=== PATIENT | male | born 1985 | race African-American/Black ===

== ENCOUNTER 2021-01-08 16:45 | Emergency (ER) | payer MEDICAID, SELFPAY ==
--- NOTE | ~2021-01-08 | XR_ITS ---
EXAMINATION: XR CHEST CLINICAL INFORMATION: Chest pain. COMPARISON: None TECHNIQUE: Frontal view of the chest was obtained. FINDINGS: No significant abnormality is noted involving the heart, lungs, mediastinum, bony thorax or soft tissues. XR/XR chest 1V IMPRESSION: Unremarkable chest examination.
[2021-01-08 16:59] VITALS: BP 109/59; PULSE 70; RESP 16; TEMP 36.6; O2SAT 96; BMI 27.3
--- NOTE | 2021-01-08 17:03 | ECG_ITS ---
Test Reason : CHEST PAIN Blood Pressure : / mmHG Vent. Rate : 062 BPM Atrial Rate : 062 BPM P-R Int : 180 ms QRS Dur : 096 ms QT Int : 384 ms P-R-T Axes : 070 073 038 degrees QTc Int : 389 ms Normal sinus rhythm ST elevation, consider early repolarization Borderline ECG No previous ECGs available Referred By: Generic ED Physician Electronically Signed By:RODRIGUEZ MIRANDA
--- NOTE | 2021-01-08 19:45 | PC.NURSE ---
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
[2021-01-08 20:01] VITALS: BP 113/59; PULSE 46; RESP 16; TEMP 37.1; O2SAT 97
[2021-01-08 20:02] LABS: MANUAL DIFF FLAG NO
[2021-01-08 20:03] LABS: Basophils Absolute Auto 0.1 X10*3/uL (0.0-0.2); Basophils Percent Auto 1.2 % (0-2); Eosinophils Absolute Auto 0.1 X10*3/uL (0.0-0.4); Eosinophils Percent Auto 2.4 % (0-4); Hematocrit 42.4 % (42-52); Hemoglobin 14.1 g/dl (14.0-18.0); Imm Gran Abs Auto 0.01 X10*3/uL (0.00-0.03); Imm Gran Pct Auto 0.2 % (0.0-0.4); Lymphocytes Absolute Auto 2.2 X10*3/uL (1.2-4.9); Lymphocytes Percent Auto 52.7 % (20-40); Mean Corpuscular HGB Conc 33.3 g/dl (31.0-36.0); Mean Corpuscular Hemoglobin 29.8 pg (27.0-33.0); Mean Corpuscular Volume 89.6 fL (80-98); Mean Platelet Volume 9.3 fL (9.4-12.4); Monocytes Absolute Auto 0.4 X10*3/uL (0.1-1.2); Monocytes Percent Auto 8.8 % (2-11); Neutrophils Absolute Auto 1.5 X10*3/uL (2.0-8.3); Neutrophils Percent Auto 34.7 % (45-73); Platelet Count 197 X10*3/uL (160-400); Red Blood Count 4.73 X10*6/uL (4.60-5.80); Red Cell Distribution Width 12.4 % (11.0-16.0); White Blood Count 4.2 X10*3/uL (4.8-10.8)
--- NOTE | 2021-01-08 20:16 | ED_ITS ---
HPI - Chest Pain General Chief Complaint: Chest Pain Stated Complaint: body pain Time Seen by Provider: 01/08/21 20:02 Source: patient Mode of arrival: ambulatory Limitations: no limitations History of Present Illness HPI narrative: Patient with no known cardiac history strong family history of sudden cardiac arrest in his brother at age of 28 comes in for chest pain started since 10:00 o'clock tomorrow which increased with deep breath and movement of the arm localized in midsternal area is sharp in character , no diaphoresis no nausea or vomiting no dizziness no palpitation patient has similar chest pain few years ago and patient was told that has a big heart no history of cocaine use Related Data Previous Rx's Medication Instructions Recorded ibuprofen 600 mg tablet 600 mg PO Q6H PRN #20 tab 01/08/21 Allergies Allergy/AdvReac Type Severity Reaction Status Date / Time No Known Allergies Allergy Verified 01/08/21 17:01 Review of Systems Review of Systems: Yes all other systems are reviewed and are negative [facility] Past Medical History Medical History Heart enlargement Social History Social History Advance Directives: No Physical Exam Vital Signs: Vital Signs: Last Vital Signs Temp 98.7 F 01/08/21 20:01 Pulse 46 L 01/08/21 20:01 Resp 16 01/08/21 20:01 BP 113/59 L 01/08/21 20:01 Pulse Ox 97 01/08/21 20:01 Body Mass Index 27.3 Appearance: Alert. Oriented X3. No acute distress. Eyes: PERRLA, No Nystagmus ENT: Pharynx normal. Oral Mucosa moist Neck: Normal inspection. Neck supple. CVS: Normal heart rate and rhythm. Pulses normal. Local tenderness bilateral 2nd intercostal space Respiratory: No respiratory distress. Equal air entry bilateral, no wheezing/rales/rhonchi Abdomen: Soft and nontender. Skin: Skin warm and dry. Normal skin color. Normal skin turgor. Extremities: No lower extremity edema. No calf tenderness Neuro: Oriented X 3 MDM - Chest Pain Lab Data Attestation: I reviewed the patient's lab results. Result diagrams: 01/08/21 19:56 01/08/21 19:56 Labs: Lab Results 01/08/21 01/08/21 01/08/21 Range/Units 19:56 19:56 19:56 WBC 4.2 L (4.8-10.8) X10*3/uL RBC 4.73 (4.60-5.80) X10*6/uL Hgb 14.1 (14.0-18.0) g/dl Hct 42.4 (42-52) % MCV 89.6 (80-98) fL MCH 29.8 (27.0-33.0) pg MCHC 33.3 (31.0-36.0) g/dl RDW 12.4 (11.0-16.0) % Plt Count 197 (160-400) X10*3/uL MPV 9.3 L (9.4-12.4) fL Immature Gran % (Auto) 0.2 (0.0-0.4) % Neut % (Auto) 34.7 L (45-73) % Lymph % (Auto) 52.7 H (20-40) % [place] % (Auto) 8.8 (2-11) % Eos % (Auto) 2.4 (0-4) % Baso % (Auto) 1.2 (0-2) % Lymph # (Auto) 2.2 (1.2-4.9) X10*3/uL [place] # (Auto) 0.4 (0.1-1.2) X10*3/uL Eos # (Auto) 0.1 (0.0-0.4) X10*3/uL Baso # (Auto) 0.1 (0.0-0.2) X10*3/uL Abs Immat Gran (auto) 0.01 (0.00-0.03) X10*3/uL Absolute Neuts (auto) 1.5 L (2.0-8.3) X10*3/uL Absolute Nucleated RBC 0.000 (0.0-0.012) X10*3/uL Nucleated RBC % (auto) 0.0 (0.0-0.2) /100WBC Sodium 141 (135-145) mmol/L Potassium 4.1 (3.3-5.1) mmol/L Chloride 107 (96-108) mmol/L Carbon Dioxide 28 (22-29) mmol/L Anion Gap 10 L (12-20) BUN 11 (9-16) mg/dL Creatinine 0.95 (0.5-1.4) mg/dL Estim Creat Clear Calc 117.7 Estimated GFR > 60 Random Glucose 80 (60-115) mg/dL Calcium 9.0 (8.4-10.2) mg/dL Troponin I High Sens < 3.5 (<3.5-35.0) ng/L COVID-19 (BRENDA) (Negative) COVID-19 Clin Com 01/08/21 Range/Units 19:56 WBC (4.8-10.8) X10*3/uL RBC (4.60-5.80) X10*6/uL Hgb (14.0-18.0) g/dl Hct (42-52) % MCV (80-98) fL MCH (27.0-33.0) pg MCHC (31.0-36.0) g/dl RDW (11.0-16.0) % Plt Count (160-400) X10*3/uL MPV (9.4-12.4) fL Immature Gran % (Auto) (0.0-0.4) % Neut % (Auto) (45-73) % Lymph % (Auto) (20-40) % [place] % (Auto) (2-11) % Eos % (Auto) (0-4) % Baso % (Auto) (0-2) % Lymph # (Auto) (1.2-4.9) X10*3/uL [place] # (Auto) (0.1-1.2) X10*3/uL Eos # (Auto) (0.0-0.4) X10*3/uL Baso # (Auto) (0.0-0.2) X10*3/uL Abs Immat Gran (auto) (0.00-0.03) X10*3/uL Absolute Neuts (auto) (2.0-8.3) X10*3/uL Absolute Nucleated RBC (0.0-0.012) X10*3/uL Nucleated RBC % (auto) (0.0-0.2) /100WBC Sodium (135-145) mmol/L Potassium (3.3-5.1) mmol/L Chloride (96-108) mmol/L Carbon Dioxide (22-29) mmol/L Anion Gap (12-20) BUN (9-16) mg/dL Creatinine (0.5-1.4) mg/dL Estim Creat Clear Calc Estimated GFR Random Glucose (60-115) mg/dL Calcium (8.4-10.2) mg/dL Troponin I High Sens (<3.5-35.0) ng/L COVID-19 (BRENDA) Negative (Negative) COVID-19 Clin Com See Note ECG Data ECG #1: Attestation: I personally reviewed and interpreted this ECG as follows: Interpretation: Normal sinus rhythm heart rate 62 beats per minute , normal axis normal intervals early repolarization changes no acute ST T wave changes no acute ischemia Discharge Plan Discharge Clinical Impression: Costalchondritis Patient Disposition: Home, Self-Care Instructions: Costochondritis (ED) Additional Instructions: Take ibuprofen every 6 hours as needed for pain. your chest pain is not from the heart. Follow-up with your primary care doctor if chest pain continues [facility] ibuprofeno cada 6 horas seg?n sea necesario para el dolor. trevino dolor de pecho no es del coraz?n. James un seguimiento con trevino m?dico de atenci?n primaria si el dolor en el pecho contin?a Prescriptions: New ibuprofen 600 mg tablet 600 mg PO Q6H PRN (Reason: pain) Qty: 20 RF: 0 Referrals: Liz Owen MD [Physician] - 1 week Print Language: Macedonian
[2021-01-08 20:17] LABS: Anion Gap 10 (12-20); Blood Urea Nitrogen 11 mg/dL (9-16); Carbon Dioxide 28 mmol/L (22-29); Chloride 107 mmol/L (96-108); Creatinine Clr Calc Pharmacy 117.7; Estimated Glomerular Filt Rate > 60; Glucose Random 80 mg/dL (60-115); Potassium 4.1 mmol/L (3.3-5.1); Sodium 141 mmol/L (135-145)
[2021-01-08 20:21] LABS: COVID-19 Test Negative (Negative)
[2021-01-08 20:23] LABS: Troponin-I High Sensitivity < 3.5 ng/L (<3.5-35.0)
[2021-01-08] MEDS: Ibuprofen 600 MG TABLET PO (20:35)
--- NOTE | 2021-01-08 20:35 | PC.NURSE ---
Pt medicated per JUN. Awaiting DC paperwork.
== END 2021-01-08 20:39 | disposition home or self-care (01) ==
PROVIDERS: Emergency Provider Internal Medicine
DX: M94.0 Chondrocostal junction syndrome [Tietze] (principal); R07.9 Chest pain, unspecified; Z20.822 Contact with and (suspected) exposure to COVID-19; Z79.899 Other long term (current) drug therapy
CPT/HCPCS: 36415; 71045; 80048; 84484; 85025; 87635; 93005; 99284

== ENCOUNTER 2021-03-01 17:03 | Emergency (ER) | payer OTHER, SELFPAY ==
--- NOTE | ~2021-03-01 | XR_ITS ---
EXAMINATION: XR ANKLE, LEFT CLINICAL INFORMATION: Fall. Pain in the calcaneus COMPARISON: None TECHNIQUE: AP, lateral, and mortise views of the left ankle. FINDINGS: Small corticated fragment inferior to lateral malleolus is chronic. No acute fracture. No dislocation. No joint effusion or soft tissue swelling around the ankle. The calcaneus is intact. Subtalar joint is normal. XR/XR ankle LT 2V IMPRESSION: Normal left ankle.
[2021-03-01 17:48] VITALS: BP 109/66; PULSE 54; RESP 20; TEMP 37.1; O2SAT 97
[2021-03-01 18:10] LABS: COVID-19 Test Negative (Negative)
[2021-03-01 18:35] VITALS: BP 109/66; PULSE 54; RESP 18; TEMP 37.1; O2SAT 97; BMI 27.1
--- NOTE | 2021-03-01 18:52 | ED_ITS ---
HPI - Extremity Injury (Lower) General Chief Complaint: Extremity Injury, Lower Stated Complaint: covid exposure + work inj Time Seen by Provider: 03/01/21 18:28 Source: patient Mode of arrival: ambulatory History of Present Illness HPI Narrative: 35-year-old male presenting to the ED complaining of left ankle and elbow pain s/p mechanical slip and fall in freezer at work yesterday. Reports pain with ambulation/left foot movement. Denies head trauma or LOC. denies symptoms prior to fall. Also requesting COVID-19 testing, denies any your eye symptoms including fever, chills, cough, SOB/CP, numbness/tingling complaint: ankle injury and foot injury Related Data Previous Rx's Medication Instructions Recorded ibuprofen 600 mg tablet 600 mg PO Q6H PRN #20 tab 01/08/21 Allergies Allergy/AdvReac Type Severity Reaction Status Date / Time No Known Allergies Allergy Verified 01/08/21 17:01 Review of Systems Review of Systems: Constitutional: No Fever, No Chills ENT/Mouth: No Ear Pain, No Nasal Congestion, No sore throat, No Rhinorrhea, No Swallowing Difficulty Cardiovascular: No Chest Pain, No SOB Respiratory: No Cough, No Sputum, No Wheezing Gastrointestinal: No Nausea, No Vomiting, No Diarrhea, No Constipation, No Abdominal pain Genitourinary: No Dysuria, No Urinary Frequency, No Urgency, No Flank Pain Musculoskeletal: + joint pain, No Myalgias, No Joint Swelling Skin: No Skin Lesions, No rash Neuro: No Weakness, No Numbness, No Paresthesias, no headache, no LOC Yes all other systems are reviewed and are negative [facility] Past Medical History Attestation statement: The following information was validated with the patient. Medical History Heart enlargement Physical Exam Vital Signs: Vital Signs: Last Vital Signs Temp 98.8 F 03/01/21 18:35 Pulse 54 03/01/21 18:35 Resp 18 03/01/21 18:35 BP 109/66 03/01/21 18:35 Pulse Ox 97 03/01/21 18:35 Body Mass Index 27.1 Const: General: cooperative, healthy appearing and no acute distress Orientation/consciousness: patient oriented x3 Limitations: no limitations HENMT: Head: Yes normal to inspection and Yes atraumatic Ears: hearing grossly normal bilaterally General nose exam: Normal external nose present Face and sinus: Yes normal facial exam Eyes: General: appearance normal, both eyes and all related structures EOM: EOMs intact bilaterally Neck: Neck: Yes normal visual inspection Resp: Effort & Inspection: normal respiratory effort, no respiratory distress and no stridor Auscultation: clear to auscultation bilaterally Cardio: Rate: regular rate Heart sounds: S1 normal heart sound present and S2 normal heart sound present GI: Inspection: Yes normal to inspection Skin: Rashes: no rashes Wounds: no wounds Neuro: General: patient oriented x3 Gait exam (Neuro): Normal gait present Extrem: Other: Left elbow with mild tenderness to palpation. No deformity/cellulitis. Full range of motion intact. Neurovascular intact distally Left calcaneus/posterior ankle/Achilles with tenderness. Limited ROM ankle secondary to pain. No deformity. Neurovascularly intact, sensation intact to light touch. Foot/knee nontender Negative Yoo test General: Yes normal to inspection Course Course Course Narrative: XR ankle LT 2V IMPRESSION: Normal left ankle. -COVID-19 negative MDM - Extremity Injury (Lower) MDM Narrative Medical decision making narrative: 35-year-old male presenting to the ED complaining of left ankle and elbow pain s/p mechanical slip and fall in freezer at work yesterday. On exam vital signs stable, NAD/nontoxic, physical exam as above. Concern for sprained ankle vs sprain/strained Achilles. Unlikely fracture. Low concern for Achilles tendon rupture with negative Yoo test a patient has been ambulatory Plan: X-rays, COVID-19 testing for request Medical Records Attestation: I reviewed the patient's medical records. Lab Data Attestation: I reviewed the patient's lab results. Labs: Lab Results 03/01/21 Range/Units 17:28 COVID-19 (BRENDA) Negative (Negative) COVID-19 Clin Com See Note Discharge Plan Discharge Clinical Impression: Ankle sprain and strain Patient Disposition: Home, Self-Care Instructions: Ankle Sprain (ED) Additional Instructions: Your x-ray was unremarkable, you likely sprained your ankle, where a strep at home as needed for comfort/stability Ice and elevate, take Tylenol Motrin You tested negative for COVID-19 Please follow-up with your doctor Follow-up with orthopedics as needed If your symptoms persist or worsen, your unable to walk, develops weakness, numbness please return to the ED Prescriptions: No Action ibuprofen 600 mg tablet 600 mg PO Q6H PRN (Reason: pain) Qty: 20 RF: 0 Referrals: Physician,None [Primary Care Provider] - 2 days
== END 2021-03-01 19:52 | disposition home or self-care (01) ==
PROVIDERS: Emergency Provider Internal Medicine; PCP Internal Medicine
DX: S93.402A Sprain of unspecified ligament of left ankle, initial encounter (principal); S96.912A Strain of unspecified muscle and tendon at ankle and foot level, left foot, initial encounter; W01.0XXA Fall on same level from slipping, tripping and stumbling without subsequent striking against object, initial encounter; Y93.9 Activity, unspecified; Y92.89 Other specified places as the place of occurrence of the external cause; Y99.0 Civilian activity done for income or pay; Z20.822 Contact with and (suspected) exposure to COVID-19
CPT/HCPCS: 36415; 73600; 87635; 99283

== ENCOUNTER 2021-05-08 10:56 | Outpatient (REF) | payer OTHER, SELFPAY ==
[2021-05-08 12:25] LABS: COVID-19 Test Positive (Negative)
== END 2021-05-08 10:57 | disposition home or self-care (01) ==
LOC: HO.LAB 10:56
PROVIDERS: Visit Provider Internal Medicine
DX: Z20.822 Contact with and (suspected) exposure to COVID-19 (principal)
CPT/HCPCS: 87635; C9803

== ENCOUNTER 2021-08-10 21:14 | Emergency (ER) | payer OTHER, SELFPAY ==
--- NOTE | ~2021-08-10 | XR_ITS ---
Indication: Trauma EXAMINATION: Right ankle, right tib-fib, right knee. 4 views of the right knee do not demonstrate acute fracture or dislocation. 2 views of the right tib-fib do not demonstrate evidence for fracture. Single image of the ankle is submitted. Mortise view. No fracture is seen. XR/XR tibia fibula RT 2V IMPRESSION: Multiple studies. No acute finding. Limited imaging of the right ankle single detailed view submitted
--- NOTE | ~2021-08-10 | CT_ITS ---
EXAMINATION: CT KNEE WITHOUT CONTRAST, RIGHT CLINICAL INFORMATION: Rule out fracture COMPARISON: 08/10/2021 TECHNIQUE: Multidetector volumetric imaging of the right knee performed without IV contrast. Coronal and sagittal reformatted images are obtained and reviewed. This CT examination was performed using dose optimization techniques as appropriate, variously including the following: *Automated exposure control *Adjustment of mA and/or kV according to patient size (this includes techniques or standardized protocols for targeted exams where dose is matched to indication/reason for exam; i.e. extremities or head) *Use of iterative reconstruction technique DLP: 241 mGy-cm FINDINGS: No fracture or subluxation. Compartmental joint spaces maintained. Small joint effusion. The soft tissues. Small enthesophyte of the superior patella. CT/CT knee RT wo con IMPRESSION: Small joint effusion. No fracture or malalignment.
--- NOTE | ~2021-08-10 | XR_ITS ---
Indication: Trauma EXAMINATION: Right ankle, right tib-fib, right knee. 4 views of the right knee do not demonstrate acute fracture or dislocation. 2 views of the right tib-fib do not demonstrate evidence for fracture. Single image of the ankle is submitted. Mortise view. No fracture is seen. XR/XR ankle RT 2V IMPRESSION: Multiple studies. No acute finding. Limited imaging of the right ankle single detailed view submitted
--- NOTE | ~2021-08-10 | XR_ITS ---
Indication: Trauma EXAMINATION: Right ankle, right tib-fib, right knee. 4 views of the right knee do not demonstrate acute fracture or dislocation. 2 views of the right tib-fib do not demonstrate evidence for fracture. Single image of the ankle is submitted. Mortise view. No fracture is seen. XR/XR knee RT 3V IMPRESSION: Multiple studies. No acute finding. Limited imaging of the right ankle single detailed view submitted
[2021-08-10 21:31] VITALS: BP 118/72; BP 120/70; PULSE 110; PULSE 86; RESP 18; TEMP 36.5; O2SAT 96; O2SAT 99; BMI 26.4
--- NOTE | 2021-08-10 22:23 | ED_ITS ---
HPI - Extremity Injury (Lower) General Chief Complaint: Extremity Injury, Lower Stated Complaint: RIGHT LEG AND KNEE PAIN Time Seen by Provider: 08/10/21 22:16 Source: patient Mode of arrival: wheelchair Limitations: no limitations History of Present Illness HPI Narrative: Patient comes to the emergency room complaining right leg pain. Prior to arrival, patient was at work. Patient states that he was standing behind a pressurized [employer]. 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 Patient got hit on the lateral side of the right leg. Patient complaining knee pain radiating towards the ankle. Patient has not taken any medication for pain. Patient did not sustain any other injuries at work. Patient states that he is unable to bear weight due to the pain in the right knee. Related Data Previous Rx's Medication Instructions Recorded ibuprofen 600 mg tablet 600 mg PO Q6H PRN #20 tab 01/08/21 ibuprofen 600 mg tablet 600 mg PO Q6H PRN #20 tab 08/11/21 Allergies Allergy/AdvReac Type Severity Reaction Status Date / Time No Known Allergies Allergy Verified 01/08/21 17:01 Review of Systems Review of Systems: Constitutional : No Weight loss, No Fever, No Chills, No Night Sweats, No Fatigue, No Malaise ENT/Mouth : No Hearing loss, No Ear Pain, No Nasal Congestion, No Sinus Pain, No Hoarseness, No sore throat, No Rhinorrhea, No Swallowing Difficulty Eyes: No Eye Pain, No Swelling, No Redness, No Foreign Body, No Discharge, No Vision Changes Cardiovascular : No Chest Pain, No SOB, No Dyspnea on Exertion, No Orthopnea, No Edema, No Palpitations Respiratory : No Cough, No Sputum, No Wheezing, No Smoke Exposure, No Dyspnea Gastrointestinal : No Nausea, No Vomiting, No Diarrhea, No Constipation, No abdominal Pain, No Hematochezia, No Melena Genitourinary : no irregular bleeding, No Dysuria, No Urinary Frequency, No Hematuria, No Urinary Incontinence, No Urgency, No Flank Pain, No Urinary Flow Changes, No Hesitancy Musculoskeletal : Complaining of right-sided knee pain radiating towards the right ankle, unable to bear weight, No Myalgias, No Joint Swelling Skin : No Skin Lesions, No rash Neuro : No Weakness, No Numbness, No Paresthesias, No Loss of Consciousness, No Dizziness, No Headache Psych : No Anxiety/Panic, No Depression, No SI/HI/AH/VH, No Social Issues, Heme/Lymph: No Bruising, No Bleeding,No Lymphadenopathy Endocrine : No Polyuria, No Polydipsia, No Temperature Intolerance [facility] Past Medical History Medical History Heart enlargement Social History Social History Advance Directives: No Physical Exam Vital Signs: Vital Signs: Last Vital Signs Temp 97.7 F 08/10/21 21:31 Pulse 86 08/10/21 21:31 Resp 18 08/10/21 21:31 BP 120/70 08/10/21 21:31 Pulse Ox 96 08/10/21 21:31 BMI result Body Mass Index 26.4 Const: Other: Appearance: Alert. Oriented X3. No acute distress. Eyes: Pupils equal, round and reactive to light. ENT: Pharynx normal. Neck: Normal inspection. Neck supple. No lymph nodes noted. No crepitus CVS: Normal heart rate and rhythm. Pulses normal. Normal S1 and S2 Respiratory: No respiratory distress. Breath sounds normal. No Wheezing. No rales Abdomen: Soft and nontender. No rigidity. No distention. Skin: Skin warm and dry. Normal skin color. Normal skin turgor. Extremities: No lower extremity edema. Right knee does not seem swollen, no obvious abrasions or deformities. Pain to palpation and applying pressure to the patella. Patient unable to flex or extend the knee due to pain. No pain at the ankle, no pain to palpation to the right thigh. Neuro: Oriented X 3. No motor deficit. No sensory deficit. Moving all extremities. No slurred speech. CN 2 through 12 grossly intact Psych: calm, cooperative, normal affect Course Course Course Narrative: Patient was given 1 dose of ibuprofen, imaging pending. X-ray was negative, patient unable to bear weigh. CT scan does not show any fracture, only a small joint effusion. MDM - Extremity Injury (Lower) Imaging Data CT scan of the knee: Radiologist's impression: INDINGS: No fracture or subluxation. Compartmental joint spaces maintained. Small joint effusion. The soft tissues. Small enthesophyte of the superior patella.? CT/CT knee RT wo con IMPRESSION: Small joint effusion. No fracture or malalignment.? ? Discharge Plan Discharge Clinical Impression: Contusion of knee, right Patient Disposition: Home, Self-Care Instructions: Knee Pain (ED) Additional Instructions: Please follow-up with work connection tomorrow. Please follow-up with your primary care physician tomorrow. If you have any worsening or new symptoms, please return to the emergency room or call 911 Prescriptions: New ibuprofen 600 mg tablet 600 mg PO Q6H PRN (Reason: fever or pain) Qty: 20 0RF No Action ibuprofen 600 mg tablet 600 mg PO Q6H PRN (Reason: pain) Qty: 20 0RF Stand Alone Forms: Work/School Release
[2021-08-10] MEDS: Ibuprofen 600 MG TABLET PO (22:34)
[2021-08-11 00:16] VITALS: BP 127/89; PULSE 74; RESP 16; TEMP 36.9; O2SAT 97
== END 2021-08-11 00:47 | disposition home or self-care (01) ==
PROVIDERS: Emergency Provider Emergency Medicine
DX: S80.01XA Contusion of right knee, initial encounter (principal); Y29.XXXA Contact with blunt object, undetermined intent, initial encounter; Y93.9 Activity, unspecified; Y92.9 Unspecified place or not applicable; Y99.9 Unspecified external cause status
CPT/HCPCS: 73562; 73590; 73600; 73700; 99284

== ENCOUNTER 2022-09-11 08:09 | Emergency (ER) | payer OTHER, SELFPAY ==
--- NOTE | ~2022-09-11 | CT_ITS ---
EXAMINATION: CT SOFT TISSUE NECK WITH CONTRAST CLINICAL INFORMATION: Further evaluation of lymphadenopathy. Pain. COMPARISON: Non-contrast enhanced facial bone CT from earlier the same day. TECHNIQUE: Following the intravenous administration of 60 mL of Omnipaque 350 intravenous contrast, helical imaging was performed in the axial plane with generation of coronal and sagittal reformatted images. This CT examination was performed using dose optimization techniques as appropriate, variously including the following: *Automated exposure control *Adjustment of mA and/or kV according to patient size (this includes techniques or standardized protocols for targeted exams where dose is matched to indication/reason for exam; i.e. extremities or head) *Use of iterative reconstruction technique DLP: 596 mGy-cm FINDINGS: There is abnormal low-attenuation soft tissue seen in the left pharyngeal mucosal space and floor of the mouth suggestive of a large left peritonsillar abscess. This tracks along the left parapharyngeal space inferiorly to the level of the piriform sinuses. There is effacement of the left piriform sinus and medial displacement of the aryepiglottic fold.. There is abnormal more superficial fluid seen in the left neck adjacent to the left carotid artery, submandibular gland and sternocleidomastoid muscle. There is periapical lucency adjacent to the most posterior molar in the left inferior alveolar ridge. There is destruction of the medial mandible. There is adjacent low-attenuation soft tissue or fluid seen in the floor of the mouth. Etiology of abscess is likely from dental infection. Abscess abuts the left side of the epiglottis. The epiglottis does not appear thickened. The larynx is normal. There is low-attenuation seen adjacent to the medial temporal horn of the right lateral ventricle, question representing a choroid fissure cyst measuring 1 cm axial image 16 series 2. Visualized intracranial structures are otherwise normal. The orbits are normal. Visualized paranasal sinuses, mastoid air cells and middle ears are clear. There is diffuse shotty cervical lymphadenopathy, likely reactive. There is fluid seen surrounding the left submandibular gland. The salivary glands are otherwise normal. The thyroid gland is normal. Vascular structures are normal. The visualized superior mediastinum is normal. The visualized lung apices are clear. The cervical spine is normal-appearing. CT/CT soft tissue neck w IV con IMPRESSION: Large left peritonsillar abscess involving the floor of the left side of the mouth extending inferiorly into the neck along the parapharyngeal space to the level of the left piriformis sinus. This probably arises from dental infection of the most posterior left inferior molar where there is destruction of the adjacent medial surface of the mandible and adjacent low-attenuation fluid collection/abscess in the floor of the mouth. Diffuse cervical lymphadenopathy, likely reactive. Findings were communicated to Dr. Lutz on 09/11/2022 at 12:55 PM.
--- NOTE | ~2022-09-11 | CT_ITS ---
EXAMINATION: CT FACIAL BONES WITHOUT CONTRAST CLINICAL INFORMATION: Pain. Trauma. COMPARISON: None available. TECHNIQUE: Axial images through the facial bones without contrast. Sagittal and coronal reconstructions on the technologist workstation were performed. This CT examination was performed using dose optimization techniques as appropriate, variously including the following: *Automated exposure control *Adjustment of mA and/or kV according to patient size (this includes techniques or standardized protocols for targeted exams where dose is matched to indication/reason for exam; i.e. extremities or head) *Use of iterative reconstruction technique DLP: 342 mGy-cm FINDINGS: No facial bone fracture is seen. Visualized intracranial structures are normal. The orbits are normal. The paranasal sinuses, mastoid air cells and middle ears are clear. The temporomandibular joints are normal. There is poor dentition. There are multiple periapical lucencies adjacent to the left most posterior molar and dental hardware. Large periapical lucency adjacent to the left most posterior inferior molar. There is breakthrough of the inner cortex of the left side of the mandible and adjacent prominent soft tissue. Possible dental abscess with extension into the oropharynx and supraglottic neck should be considered. Neoplastic process cannot be excluded. Clinical correlation recommended. If there is question of abscess, repeat exam with IV contrast should be considered. There is diffuse disc cervical lymphadenopathy. There is prominent soft tissue seen in the oropharynx, left side greater than right. There is asymmetric increased soft tissue seen in the left supraglottic region with effacement of the left piriformis sinus. Mass versus infection should be considered. Visualized salivary glands are normal. Visualized cervical is normal. CT/CT facial bones wo IV con IMPRESSION: No facial bone fracture. Prominent soft tissue in the oropharynx, left greater than right and inferior extension to the supraglottic region with effacement of the left piriformis sinus. Diffuse cervical lymphadenopathy. There is poor dentition with periapical lucency adjacent to the left most posterior inferior molar. There is breakthrough of the inner cortex of the mandible. Possible dental abscess with extension into the oropharynx and supraglottic neck should be considered. Neoplastic process cannot be excluded. Clinical correlation recommended. If there is question of abscess, repeat exam with IV contrast should be considered.
[2022-09-11 08:11] VITALS: BP 117/63; PULSE 78; RESP 16; TEMP 36.9; O2SAT 97; BMI 24.4
--- NOTE | 2022-09-11 08:22 | ED.HEATRA ---
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 Patient states that 2 days ago, he caught an elbow to his left jaw and has been having pain with trouble eating. Patient denies any loss of consciousness, dizziness, lightheadedness, abdominal pain, nausea, vomiting, fever, chills, blurry vision, double vision, loss of vision, chest pain, difficulty breathing, shortness of breath, back pain, night sweats, pain with urination, increased urinary frequency, increased urinary urgency, blood in his urine or stool, syncope or a near syncopal episode, bowel incontinence, bladder incontinence, bowel retention, bladder retention, or any other complaints at this time. Onset (ago): day(s) (2) Place: outdoors Loss of Consciousness: no Location of injury: mandible Severity: mild Severity scale (1-10): 3 Quality: dull and aching Radiation: none Associated symptoms: denies other symptoms Related Data Previous Rx's Medication Instructions Recorded ibuprofen 600 mg tablet 600 mg PO Q6H PRN pain #20 tabs 01/08/21 ibuprofen 600 mg tablet 600 mg PO Q6H PRN fever or pain 08/11/21 #20 tabs Allergies Allergy/AdvReac Type Severity Reaction Status Date / Time No Known Allergies Allergy Verified 01/08/21 17:01 Review of Systems Constitutional: Constitutional: Reports no additional constitutional complaints, Denies chills, Denies fever(s) and Denies night sweats Eyes: Eyes: Reports no additional eye complaints, Denies blurry vision, Denies change in vision, Denies diplopia, Denies eye discharge, Denies loss of vision and Denies eye pain ENT: Denies dizziness Comments: left sided jaw pain Cardiovascular: Cardiovascular: Reports no additional cardiovascular complaints, Denies chest pain, Denies lightheadedness, Denies Loss of Consciousness and Denies dyspnea Respiratory: Respiratory: Reports no additional respiratory complaints and Denies dyspnea Gastrointestinal: Gastrointestinal: Reports no additional gastrointestinal complaints, Denies abdominal pain, Denies melena, Denies hematochezia, Denies change in bowel habits and Denies change in stool character Genitourinary: Genitourinary: Reports no additional male genitourinary complaints, Denies hematuria, Denies oliguria, Denies difficulty urinating, Denies dysuria, Denies urinary frequency, Denies urinary hesitancy, Denies urinary incontinence and Denies urinary urgency Musculoskeletal: Musculoskeletal: Reports no additional musculoskeletal complaints, Denies numbness and Denies tingling Neurologic: Denies dizziness, Denies loss of vision, Denies numbness and Denies tingling Psychiatric: Psychiatric: Reports no additional psychiatric complaints Endocrine: Endocrine: Reports no additional endocrine complaints Hematologic/Lymphatic: Hematologic/Lymphatic: Reports no additional hematologic/lymphatic complaints Allergic/Immunologic: Allergic/Immunologic: Reports no additional allergic/immunologic complaints PMFSH Past Medical History Attestation statement: The following information was validated with the patient. Source: old records reviewed and nursing notes reviewed Medical History Heart enlargement Social History Social History Alcohol intake: never Smoked in Last 30 Days: Yes Use of substances other than those prescribed or required for medical reasons: No Advance Directives: No Advance Directives Information Provided: No Physical Exam Vital Signs: Vital Signs: Last Vital Signs Temp 98.8 F 09/11/22 11:46 Pulse 82 09/11/22 11:46 Resp 18 09/11/22 11:46 BP 122/74 09/11/22 11:46 Pulse Ox 99 09/11/22 11:46 O2 Del Method Room Air 09/11/22 11:46 BMI result Body Mass Index 24.4 Const: General: cooperative, no acute distress, alert and awake Nutritional Appearance: well nourished Orientation/consciousness: patient oriented x3 Limitations: no limitations HEENT: Head: Yes normal to inspection and Yes atraumatic Ears: hearing grossly normal bilaterally and external ears normal General nose exam: Normal external nose present, no nasal discharge noted and no epistaxis Face and sinus: Yes normal facial exam, No abrasion and No laceration Mouth: Normal oral and palatal mucosa present, no drooling and no muffled voice Eyes: General: appearance normal, both eyes and all related structures Periorbital: periorbital findings normal Eyelids: Yes eyelids normal Conjunctivae: conjunctivae normal Pupils: Equal, round and reactive pupils present EOM: EOMs intact bilaterally Neck: Neck: Yes normal visual inspection, Yes full ROM and Yes no lymphadenopathy Chest: Chest palpation & inspection: normal inspection of the chest Resp: Effort & Inspection: normal respiratory effort and able to speak in complete sentences GI: Inspection: Yes normal to inspection Neuro: General: patient oriented x3 and moves all extremities Cranial nerves: Yes Equal, round and reactive pupils present Cognition (Neuro): normal cognition Motor exam (neuro): 5/5 motor strength present throughout Sensory Exam: Normal double simultaneous stimulation for sensation Coordination: [id number] test normal Extrem: General: Yes normal to inspection, Yes full ROM and Yes capillary refill normal Psych: Appearance: grossly normal Mental Status: mental status grossly normal Affect: normal affect Attitude: cooperative Thought process: Normal thought process present Thought content: Normal thought content present Insight: Good insight present (Psych) Medications Administered Discontinued Medications Generic Name Dose Route Start Last Admin Trade Name Freq PRN Reason Stop Dose Admin Hydrocodone Bitart/Acetaminophen 1 tab 09/11/22 08:35 09/11/22 08:46 Hydrocodone Bit/Acetam 5/325 Tablet PO 09/11/22 08:36 1 tab ONCE ONE Administration Piperacillin Sod/Tazobactam 50 mls @ 100 mls/hr 09/11/22 10:40 09/11/22 11:45 Sod 3.375 gm/ Sodium Chloride IV 09/11/22 11:09 Infused ONCE ONE Infusion Iohexol 100 ml 09/11/22 12:04 09/11/22 12:04 Iohexol 350 Mg/Ml 100 Ml Infus..Btl IV 09/11/22 12:05 60 ml ONCE ONE Administration Morphine Sulfate 4 mg 09/11/22 10:40 09/11/22 11:15 Morphine Sulfate 4 Mg/Ml Cartridge IVPUSH 09/11/22 10:41 4 mg ONCE ONE Administration Protocol Ondansetron HCl 4 mg 09/11/22 10:40 09/11/22 11:15 Ondansetron Hcl 4 Mg/2 Ml Vial IVPUSH 09/11/22 10:41 4 mg ONCE ONE Administration Medical Decision Making Medical Decision Making MDM Narrative: Patient is a 37 year old assigned male at with no reported medical history presenting to the emergency department today with left sided jaw pain. Patient's physical exam showed significant swelling of the left jaw and left neck with true trismus. Patient's blood work was unremarkable. Patient's soft tissue neck CT showed a large peritonsillar abscess extending down the left side of the neck. I explained my physical exam findings as well as all test results to the patient. I answered all questions asked by the patient. Patient was given IV antibiotics and pain medication. I called and spoke to an ENT attending at [facility] who said they'd be willing to see the patient there. Patient then informed me that he would like to sign out against medical advice to go home and get some things done first. I explained, in detail, the risks of the patient signing out against medical advice. Patient verbalized understanding and requested to sign out against medical advice. I provided the patient with a disc of his images and my signed noted to take with him if he so chooses to present to a different emergency department. Differential Diagnosis Differential Diagnoses: The differential diagnosis associated with the presentation includes dental abscess, peritonsillar abscess Admission/Observation Consideration of admission/observation: Escalation of care including admission/observation considered Patient has an extensive left sided dental abscess going down his neck however, we do not have OMFS or ENT here for admission so patient will need to be transferred. Consult Healthcare Provider Management of the patient was discussed with: Heat Treatment Technician (spoke with an ENT attending physician at [facility] who accepted the patient as noted in the [facility] portion of this chart. ) Lab Data [facility] Lab Attestation statement: I reviewed the patient's lab results. 09/11/22 11:27 09/11/22 11:27 Labs: Lab Results 09/11/22 09/11/22 09/11/22 Range/Units 11:27 11:27 11:27 WBC 9.0 (4.8-10.8) X10*3/uL RBC 4.94 (4.60-5.80) X10*6/uL Hgb 14.7 (14.0-18.0) g/dl Hct 44.8 (42.0-52.0) % MCV 90.7 (80.0-98.0) fL MCH 29.8 (27.0-33.0) pg MCHC 32.8 (31.0-36.0) g/dl RDW 12.6 (11.0-16.0) % Plt Count 201 (160-400) X10*3/uL MPV 9.7 (9.4-12.4) fL Immature Gran % (Auto) 0.3 (0.0-0.4) % Neut % (Auto) 70.8 (45-73) % Lymph % (Auto) 17.7 L (20-40) % [place] % (Auto) 10.6 (2-11) % Eos % (Auto) 0.0 (0-4) % Baso % (Auto) 0.6 (0-2) % Lymph # (Auto) 1.6 (1.2-4.9) X10*3/uL [place] # (Auto) 1.0 (0.1-1.2) X10*3/uL Eos # (Auto) 0.0 (0.0-0.4) X10*3/uL Baso # (Auto) 0.1 (0.0-0.2) X10*3/uL Abs Immat Gran (auto) 0.03 (0.00-0.03) X10*3/uL Absolute Neuts (auto) 6.4 (2.0-8.3) x10*3/uL Absolute Nucleated RBC 0.000 (0.0-0.012) X10*3/uL Nucleated RBC % (auto) 0.0 (0.0-0.2) /100WBC ESR 8 (0-15) MM/HR Sodium 139 (135-145) mmol/L Potassium 4.0 (3.3-5.1) mmol/L Chloride 105 (96-108) mmol/L Carbon Dioxide 24 (22-29) mmol/L Anion Gap 14 (12-20) BUN 12 (9-16) mg/dL Creatinine 1.00 (0.5-1.4) mg/dL Estim Creat Clear Calc 113.1 Estimated GFR > 60 Random Glucose 95 (60-115) mg/dL Calcium 9.1 (8.4-10.2) mg/dL Magnesium 2.0 (1.6-2.6) mg/dL Total Bilirubin 1.7 H (0.0-1.0) mg/dL AST 20 (5-37) U/L ALT 16 (0-40) U/L Alkaline Phosphatase 57 (39-117) U/L C-Reactive Protein 6.54 H (< or = 0.50) mg/dL Total Protein 7.5 (6.5-8.0) g/dL Albumin 4.3 (3.5-5.0) g/dL Independent Interpretation I performed an independent interpretation of an: CT Scan Interpretation: My interpretation is in agreement with the radiologist's impression of these imaging studies. EXAMINATION: CT FACIAL BONES WITHOUT CONTRAST CLINICAL INFORMATION: Pain. Trauma.? COMPARISON: None available. TECHNIQUE: Axial images through the facial bones without contrast. Sagittal and coronal reconstructions on the technologist workstation were performed. ? This CT examination was performed using dose optimization techniques as appropriate, variously including the following: *Automated exposure control *Adjustment of mA and/or kV according to patient size (this includes techniques or standardized protocols for targeted exams where dose is matched to indication/reason for exam; i.e. extremities or head) *Use of iterative reconstruction technique DLP: 342 mGy-cm FINDINGS: No facial bone fracture is seen. Visualized intracranial structures are normal. The orbits are normal. The paranasal sinuses, mastoid air cells and middle ears are clear. The temporomandibular joints are normal. There is poor dentition. There are multiple periapical lucencies adjacent to the left most posterior molar and dental hardware. Large periapical lucency adjacent to the left most posterior inferior molar. There is breakthrough of the inner cortex of the left side of the mandible and adjacent prominent soft tissue. Possible dental abscess with extension into the oropharynx and supraglottic neck should be considered. Neoplastic process cannot be excluded. Clinical correlation recommended. If there is question of abscess, repeat exam with IV contrast should be considered. There is diffuse disc cervical lymphadenopathy. There is prominent soft tissue seen in the oropharynx, left side greater than right. There is asymmetric increased soft tissue seen in the left supraglottic region with effacement of the left piriformis sinus. Mass versus infection should be considered. Visualized salivary glands are normal. Visualized cervical is normal. CT/CT facial bones wo IV con IMPRESSION: No facial bone fracture. Prominent soft tissue in the oropharynx, left greater than right and inferior extension to the supraglottic region with effacement of the left piriformis sinus. Diffuse cervical lymphadenopathy.? There is poor dentition with periapical lucency adjacent to the left most posterior inferior molar. There is breakthrough of the inner cortex of the mandible. Possible dental abscess with extension into the oropharynx and supraglottic neck should be considered. Neoplastic process cannot be excluded. Clinical correlation recommended. If there is question of abscess, repeat exam with IV contrast should be considered. Dictated By: Miladis Buck MD Signed By: Electronically signed by Miladis Buck MD 09/11/22 1026 EXAMINATION: CT SOFT TISSUE NECK WITH CONTRAST CLINICAL INFORMATION: Further evaluation of lymphadenopathy. Pain.? COMPARISON: Non-contrast enhanced facial bone CT from earlier the same day.? ? TECHNIQUE: Following the intravenous administration of 60 mL of Omnipaque 350 intravenous contrast, helical imaging was performed in the axial plane with generation of coronal and sagittal reformatted images. This CT examination was performed using dose optimization techniques as appropriate, variously including the following: *Automated exposure control *Adjustment of mA and/or kV according to patient size (this includes techniques or standardized protocols for targeted exams where dose is matched to indication/reason for exam; i.e. extremities or head) *Use of iterative reconstruction technique DLP: 596 mGy-cm FINDINGS: There is abnormal low-attenuation soft tissue seen in the left pharyngeal mucosal space and floor of the mouth suggestive of a large left peritonsillar abscess. This tracks along the left parapharyngeal space inferiorly to the level of the piriform sinuses. There is effacement of the left piriform sinus and medial displacement of the aryepiglottic fold.. There is abnormal more superficial fluid seen in the left neck adjacent to the left carotid artery, submandibular gland and sternocleidomastoid muscle. There is periapical lucency adjacent to the most posterior molar in the left inferior alveolar ridge. There is destruction of the medial mandible. There is adjacent low-attenuation soft tissue or fluid seen in the floor of the mouth. Etiology of abscess is likely from dental infection. Abscess abuts the left side of the epiglottis. The epiglottis does not appear thickened. The larynx is normal. There is low-attenuation seen adjacent to the medial temporal horn of the right lateral ventricle, question representing a choroid fissure cyst measuring 1 cm axial image 16 series 2. Visualized intracranial structures are otherwise normal. The orbits are normal. Visualized paranasal sinuses, mastoid air cells and middle ears are clear. There is diffuse shotty cervical lymphadenopathy, likely reactive. There is fluid seen surrounding the left submandibular gland. The salivary glands are otherwise normal. The thyroid gland is normal. Vascular structures are normal. The visualized superior mediastinum is normal. The visualized lung apices are clear. The cervical spine is normal-appearing. CT/CT soft tissue neck w IV con IMPRESSION: Large left peritonsillar abscess involving the floor of the left side of the mouth extending inferiorly into the neck along the parapharyngeal space to the level of the left piriformis sinus. This probably arises from dental infection of the most posterior left inferior molar where there is destruction of the adjacent medial surface of the mandible and adjacent low-attenuation fluid collection/abscess in the floor of the mouth. Diffuse cervical lymphadenopathy, likely reactive. ? Findings were communicated to Dr. Lutz on 09/11/2022 at 12:55 PM. Dictated By: Miladis Buck MD Signed By: Electronically signed by Miladis Buck MD 09/11/22 1304 Critical Care Time Critical Care Time Critical Care Time: Yes Total Critical Care Time: 45 Attestation: I spent 45 minutes of Critical Care Time with this patient. This does not include time spent on separately reported billable procedures. Discharge Plan Discharge Clinical Impression: Abscess, dental, Abscess, peritonsillar Patient Disposition: Left Against Medical Advice Prescriptions: No Action ibuprofen 600 mg tablet 600 mg PO Q6H PRN (Reason: pain) Qty: 20 0RF ibuprofen 600 mg tablet 600 mg PO Q6H PRN (Reason: fever or pain) Qty: 20 0RF Stand Alone Forms: Against Medical Advice Print Language: Greenlandic
[2022-09-11] MEDS: HYDROcodone Bit/Acetam 5/325 TABLET 1 TAB PO (08:46)
[2022-09-11 10:08] VITALS: BP 131/78; PULSE 88; RESP 18; TEMP 36.7; O2SAT 97
[2022-09-11] MEDS: Piperacillin Sodium/Tazobactam 3.375 GM in 0.9 % Sodium Chloride 50 ML IV (11:15)
[2022-09-11] MEDS: Morphine Sulfate 4 MG/ML CARTRIDGE IVPUSH (11:15)
[2022-09-11] MEDS: ondansetron HCL 4 MG/2 ML VIAL IVPUSH (11:15)
[2022-09-11 11:31] LABS: MANUAL DIFF FLAG NO
[2022-09-11 11:38] LABS: Basophils Absolute Auto 0.1 X10*3/uL (0.0-0.2); Basophils Percent Auto 0.6 % (0-2); Hematocrit 44.8 % (42.0-52.0); Hemoglobin 14.7 g/dl (14.0-18.0); Imm Gran Abs Auto 0.03 X10*3/uL (0.00-0.03); Imm Gran Pct Auto 0.3 % (0.0-0.4); Lymphocytes Absolute Auto 1.6 X10*3/uL (1.2-4.9); Lymphocytes Percent Auto 17.7 % (20-40); Mean Corpuscular HGB Conc 32.8 g/dl (31.0-36.0); Mean Corpuscular Hemoglobin 29.8 pg (27.0-33.0); Mean Corpuscular Volume 90.7 fL (80.0-98.0); Mean Platelet Volume 9.7 fL (9.4-12.4); Monocytes Percent Auto 10.6 % (2-11); Neutrophils Absolute Auto 6.4 x10*3/uL (2.0-8.3); Neutrophils Percent Auto 70.8 % (45-73); Platelet Count 201 X10*3/uL (160-400); Red Blood Count 4.94 X10*6/uL (4.60-5.80); Red Cell Distribution Width 12.6 % (11.0-16.0)
[2022-09-11 11:46] VITALS: BP 122/74; PULSE 82; RESP 18; TEMP 37.1; O2SAT 99
[2022-09-11 11:50] LABS: Alanine Aminotransferase 16 U/L (0-40); Albumin Level 4.3 g/dL (3.5-5.0); Alkaline Phosphatase 57 U/L (39-117); Anion Gap 14 (12-20); Aspartate Amino Transferase 20 U/L (5-37); Bilirubin Total 1.7 mg/dL (0.0-1.0); Blood Urea Nitrogen 12 mg/dL (9-16); C Reactive Protein 6.54 mg/dL (< or = 0.50); Calcium 9.1 mg/dL (8.4-10.2); Carbon Dioxide 24 mmol/L (22-29); Chloride 105 mmol/L (96-108); Creatinine Clr Calc Pharmacy 113.1; Estimated Glomerular Filt Rate > 60; Glucose Random 95 mg/dL (60-115); Sodium 139 mmol/L (135-145); Total Protein 7.5 g/dL (6.5-8.0)
[2022-09-11] MEDS: iohexoL 350 MG/ML 100 ML INFUS..BTL IV (12:04)
[2022-09-11 12:30] LABS: Erythrocyte Sedimentation Rate 8 MM/HR (0-15)
--- NOTE | 2022-09-11 13:30 | PC.NURSE ---
PT DECIDES TO LEAVE AMA BECAUSE HE HAS HIS DOG AT HOME TO TAKE CARE OF AND [place] [facility] [place] PROVIDER AT BEDSIDE AT LENGTH ENCOURAGING PT TO GET FURTHER TX/EVAL AT ANOTHER HOSPITAL. PT HAS DECIDED TO LEAVE AMA.
[2022-09-11 14:13] VITALS: BP 125/69; PULSE 85; RESP 18; TEMP 36.6; O2SAT 99
== END 2022-09-11 14:45 | disposition left against medical advice (07) ==
PROVIDERS: Physician Assistant Medical; Emergency Provider Emergency Medicine Emergency Medical Services
DX: R68.84 Jaw pain (principal); K04.7 Periapical abscess without sinus
CPT/HCPCS: 36415; 70486; 70491; 80053; 83735; 85025; 85652; 86140; 96365; 96375; 99284; J2270; J2405; J2543; Q9967

== ENCOUNTER 2023-09-20 15:43 | Emergency (ER) | payer OTHER, SELFPAY ==
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
[2023-09-20 15:58] VITALS: BP 120/58; PULSE 56; RESP 20; TEMP 37.1; O2SAT 99; BMI 26.4
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
[2023-09-20] MEDS: Ibuprofen 600 MG TABLET PO (18:30)
[2023-09-20 18:31] VITALS: BP 120/58; PULSE 56; RESP 20; TEMP 37.1; O2SAT 99
[2023-09-20 18:33] VITALS: BP 126/58; PULSE 65; RESP 20; TEMP 36.9; O2SAT 99
== END 2023-09-20 18:36 | disposition home or self-care (01) ==
PROVIDERS: Emergency Provider Emergency Medicine Emergency Medical Services
DX: S46.812A Strain of other muscles, fascia and tendons at shoulder and upper arm level, left arm, initial encounter (principal); S39.012A Strain of muscle, fascia and tendon of lower back, initial encounter; V58.5XXA Driver of pick-up truck or van injured in noncollision transport accident in traffic accident, initial encounter; Y93.9 Activity, unspecified; Y92.9 Unspecified place or not applicable; Y99.0 Civilian activity done for income or pay
CPT/HCPCS: 72100; 73030; 73080; 73110; 73130; 99283